=== PATIENT | female | born 2000 | race Caucasian/White ===

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

== ENCOUNTER → 2018-04-01 | Outpatient (CLI) | payer BC | LOC: COL.RAD 10:18 | DX: D69.6 Thrombocytopenia, unspecified (principal) ==

== ENCOUNTER 2019-03-05 14:34 | Emergency (ER) | payer BC ==
[~2019-03-05] VITALS: Ht 177.8 cm; Wt 72.7 kg
[2019-03-05 14:38] VITALS: TEMP 96.8
[2019-03-05] MEDS ORDERED: SYNTHROID0.05 MG/TA PO (14:40)
[2019-03-05] MEDS ORDERED: AIMOVIG AU70 MG/1 ML SQ (14:40)
[2019-03-05] MEDS ORDERED: PLAQUENIL 200M200 MG PO (15:02)
[2019-03-05] MEDS ORDERED: MAXZIDE-25MG TA1 TAB PO (15:03)
[2019-03-05 15:05] LABS: BASO % 0.4 % (0.0-2.0); EOS # 0.1 (0.0-0.7); EOS % 1.3 % (0-4.0); GRAN # 3.8 (1.4-6.5); GRAN % 48.7 % (42.2-75.2); HEMATOCRIT 39.9 % (37.0-47.0); HEMOGLOBIN 13.8 g/dl (12.5-16.0); LYMPH # 3.4 (1.2-3.4); LYMPH % 42.7 % (20.0-51.0); MEAN CELL VOLUME 85 fl (80.0-100.0); MEAN CORPUSCULAR HEMOGLOBIN 30 pg (27.0-31.0); MEAN CORPUSCULAR HGB CONC 35 g/dl (33.0-37.0); MEAN PLATELET VOLUME 11.4 fl (7.4-10.4); MONO # 0.5 (0.1-0.6); MONO % 6.8 % (1.7-9.3); PLATELET COUNT 185 K/mm3 (130-400); RED BLOOD COUNT 4.67 M/mm3 (4.10-5.30)
[2019-03-05 15:05] LABS: COLLECTION METHOD CLEAN CATCH
[2019-03-05 15:08] LABS: ALANINE AMINOTRANSFERASE 11 U/L (9-52); ALBUMIN 4.7 gm/dL (3.5-5.0); ALKALINE PHOSPHATASE 68 U/L (50-136); ANION GAP 10 mmol/L (7-16); AST,SGOT 23 U/L (15-37); BILIRUBIN,TOTAL 1.4 mg/dL (0.0-1.0); BLOOD UREA NITROGEN 15 mg/dL (7-17); CALCIUM 9.9 mg/dL (8.4-10.2); CARBON DIOXIDE 25 mmol/L (22-30); CHLORIDE 107 mmol/L (98-107); CREATININE, serum 0.91 (0.52-1.25); GLUCOSE 100 mg/dL (74-106); LIPASE 100 U/L (23-300); POTASSIUM 3.7 mmol/L (3.4-5.0); SODIUM 143 mmol/L (137-145); TOTAL PROTEIN 8.3 gm/dL (6.4-8.2)
[2019-03-05 15:10] LABS: C-REACTIVE PROTEIN < 0.5 mg/dL (0.0-0.9)
[2019-03-05 15:14] LABS: MUCOUS Present /lpf; PH 5 (5-8); SQUAMOUS EPITHELIAL 0-2 /hpf; URINE APPEARANCE Clear; URINE BACTERIA None Seen /hpf; URINE BILIRUBIN Negative (NEGATIVE); URINE BLOOD 1+ (NEGATIVE); URINE COLOR Yellow; URINE GLUCOSE Negative (NEGATIVE); URINE KETONE Negative (NEGATIVE); URINE LEUKOCYTE ESTERASE Negative (NEGATIVE); URINE NITRATE Negative (NEGATIVE); URINE PROTEIN(semi-quant) Negative (NEGATIVE); URINE UROBILINOGEN Negative (NEGATIVE)
[2019-03-05] MEDS ORDERED: NORCO 325 MG-51 TAB PO (16:51)
[2019-03-05] MEDS ORDERED: ZOFRAN 4MG T4 MG/TAB PO (16:51)
[2019-03-05] MEDS ORDERED: FLOMAX 0.40.4 MG/CAP PO (16:51)
[2019-03-05 17:10] VITALS: BP 154/94; PULSE 61
== END 2019-03-05 17:15 | disposition home or self-care (01) ==
LOC: COL.ER 14:34
PROVIDERS: Emergency Medicine
DX: N20.2 Calculus of kidney with calculus of ureter (principal); F32.9 Major depressive disorder, single episode, unspecified; G43.909 Migraine, unspecified, not intractable, without status migrainosus
CPT/HCPCS: J1885; J2405; J3010; J7030; Q9967

== ENCOUNTER → 2019-03-26 | Outpatient (CLI) | payer BC ==
[~2019-03-26] MED LIST changes: +AIMOVIG AU70 MG/1 ML SQ; +FLOMAX 0.40.4 MG/CAP PO; +MAXZIDE-25MG TA1 TAB PO; +NORCO 325 MG-51 TAB PO; +PLAQUENIL 200M200 MG PO; +SYNTHROID0.05 MG/TA PO; +ZOFRAN 4MG T4 MG/TAB PO
== END ==
LOC: COL.RAD 15:25
DX: N20.0 Calculus of kidney (principal)

== ENCOUNTER 2019-09-28 16:09 | Emergency (ER) | payer BC ==
[~2019-09-28] VITALS: Ht 177.8 cm; Wt 75.0 kg
[2019-09-28 16:15] VITALS: TEMP 98.1
[2019-09-28] MEDS ORDERED: KYLEENA1 EACH IY (16:49)
[2019-09-28 17:02] LABS: BASO % 0.5 % (0.0-2.0); EOS # 0.1 (0.0-0.7); EOS % 1.1 % (0-4.0); GRAN # 5.3 (1.4-6.5); GRAN % 66.6 % (42.2-75.2); HEMATOCRIT 43.8 % (37.0-47.0); HEMOGLOBIN 14.8 g/dl (12.5-16.0); LYMPH % 24.9 % (20.0-51.0); MEAN CELL VOLUME 89 fl (80.0-100.0); MEAN CORPUSCULAR HEMOGLOBIN 30 pg (27.0-31.0); MEAN CORPUSCULAR HGB CONC 34 g/dl (33.0-37.0); MEAN PLATELET VOLUME 10.7 fl (7.4-10.4); MONO # 0.5 (0.1-0.6); MONO % 6.6 % (1.7-9.3); PLATELET COUNT 164 K/mm3 (130-400); REDCELL DISTRIBUTION WIDTH-CV 12.3 % (11.5-14.5)
[2019-09-28 17:24] LABS: ALANINE AMINOTRANSFERASE 16 U/L (9-52); ALBUMIN 4.9 gm/dL (3.5-5.0); ALKALINE PHOSPHATASE 69 U/L (50-136); ANION GAP 9 mmol/L (7-16); AST,SGOT 29 U/L (15-37); BILIRUBIN,TOTAL 1.4 mg/dL (0.0-1.0); BLOOD UREA NITROGEN 15 mg/dL (7-17); CALCIUM 10.1 mg/dL (8.4-10.2); CARBON DIOXIDE 29 mmol/L (22-30); CHLORIDE 103 mmol/L (98-107); CREATININE, serum 1.01 (0.52-1.25); GLUCOSE 113 mg/dL (74-106); POTASSIUM 3.6 mmol/L (3.4-5.0); SODIUM 142 mmol/L (137-145); TOTAL PROTEIN 8.4 gm/dL (6.4-8.2)
[2019-09-28 17:25] LABS: C-REACTIVE PROTEIN < 0.5 mg/dL (0.0-0.9)
[2019-09-28 17:33] LABS: TROPONIN-I < 0.012 ng/mL (0.000-0.035)
[2019-09-28 18:36] VITALS: BP 145/89; PULSE 73
== END 2019-09-28 18:35 | disposition home or self-care (01) ==
LOC: COL.ER 16:09
PROVIDERS: Nurse Practitioner
DX: R07.89 Other chest pain (principal); G43.909 Migraine, unspecified, not intractable, without status migrainosus
CPT/HCPCS: J1885

== ENCOUNTER → 2020-05-27 | Outpatient (CLI) | payer BC ==
[~2020-05-27] MED LIST changes: +KYLEENA1 EACH IY
== END ==
LOC: ZCOL.LAB 14:28
DX: Z20.828 Contact with and (suspected) exposure to other viral communicable diseases (principal)

== ENCOUNTER 2021-03-24 16:20 | Emergency (ER) | payer BC ==
[~2021-03-24] VITALS: Ht 177.8 cm; Wt 77.3 kg
[2021-03-24 17:12] LABS: BASO # 0.1 (0.0-0.2); BASO % 0.7 % (0.0-2.0); EOS # 0.1 (0.0-0.7); EOS % 0.8 % (0-4.0); GRAN # 5.6 (1.4-6.5); GRAN % 66.7 % (42.2-75.2); HEMATOCRIT 37.5 % (37.0-47.0); HEMOGLOBIN 12.3 g/dl (12.5-16.0); LYMPH # 2.2 (1.2-3.4); LYMPH % 25.5 % (20.0-51.0); MEAN CELL VOLUME 85 fl (80.0-100.0); MEAN CORPUSCULAR HEMOGLOBIN 28 pg (27.0-31.0); MEAN CORPUSCULAR HGB CONC 33 g/dl (33.0-37.0); MEAN PLATELET VOLUME 10.7 fl (7.4-10.4); MONO # 0.5 (0.1-0.6); MONO % 5.9 % (1.7-9.3); PLATELET COUNT 211 K/mm3 (130-400); REDCELL DISTRIBUTION WIDTH-CV 12.1 % (11.5-14.5)
[2021-03-24 17:23] LABS: ALBUMIN 4.8 gm/dL (3.5-5.0); BILIRUBIN,TOTAL 1.4 mg/dL (0.0-1.0); CREATININE, serum 0.98 (0.52-1.25); POTASSIUM 4.1 mmol/L (3.4-5.0); TOTAL PROTEIN 8.3 gm/dL (6.4-8.2)
[2021-03-24] MEDS ORDERED: MEDROL 4MG DOSPA4 MG PO (18:19)
[2021-03-24] MEDS ORDERED: NORCO 325 MG-51 TAB PO (18:19)
[2021-03-24 18:50] VITALS: BP 159/102; PULSE 88; TEMP 98.6
== END 2021-03-24 18:50 | disposition home or self-care (01) ==
LOC: COL.ER 16:20
PROVIDERS: Physician Assistant
DX: M54.6 Pain in thoracic spine (principal); R07.81 Pleurodynia; Z86.16 Personal history of COVID-19; Z88.1 Allergy status to other antibiotic agents; Z88.2 Allergy status to sulfonamides; Z88.8 Allergy status to other drugs, medicaments and biological substances; Z79.890 Hormone replacement therapy
CPT/HCPCS: J1885; J2270; J3010; J7030